=== PATIENT | female | born 1970 | race Caucasian/White ===

== ENCOUNTER 2016-04-11 23:14 | Emergency (ER) | payer OTHER ==
[~2016-04-11] VITALS: Ht 157.5 cm; Wt 96.8 kg
[2016-04-12 01:22] LABS: INTERNAL CONTROL VALID? YES
[2016-04-12 01:24] LABS: ADD MIUA? YES; BILIRUBIN NEGATIVE; BLOOD NEGATIVE; COLOR YELLOW ((YELLOW)); GLUCOSE (STRIP) NEGATIVE; KETONES NEGATIVE; LEUKOCYTES SMALL; NITRITE NEGATIVE; PROTEIN (STRIP) 30; SPECIFIC GRAVITY 1.029 (1.000-1.030); UROBILINOGEN 0.2 MG/DL (0.2-1.0)
[2016-04-12 01:36] LABS: BACTERIA RARE /HPF; EPITHELIAL CELLS 1+ /HPF; MUCUS 4+ /LPF; UCUL ADDED? NO
[2016-04-12] MEDS ORDERED: ULTRAM50 MG PO (01:41)
[2016-04-12 01:56] VITALS: BP 125/69
== END 2016-04-12 03:13 | disposition home or self-care (01) ==
LOC: EME 23:14
PROVIDERS: Emergency Medicine
PROC: 3E0T3BZ Introduction of Anesthetic Agent into Peripheral Nerves and Plexi, Percutaneous Approach (ICD-10-PCS; principal; 2016-04-11)
DX: S80.02XA Contusion of left knee, initial encounter (principal); W19.XXXA Unspecified fall, initial encounter; K08.89 Other specified disorders of teeth and supporting structures; M54.9 Dorsalgia, unspecified
CPT/HCPCS: 72070; 73564; 81003; 84703; 99281; 99283; J1885